=== PATIENT | female | born 1995 | race African-American/Black ===

== ENCOUNTER → 2017-04-19 | Outpatient (CLI) | payer OTHER ==
[~2017-04-19] MED LIST: METR-1 PO; PRENTAB PO
== END ==
LOC: HPND 11:53
PROVIDERS: ATTEND Obstetrics & Gynecology
DX: Z36 Encounter for antenatal screening of mother (principal)
CPT/HCPCS: 76801

== ENCOUNTER → 2017-06-18 | Outpatient (CLI) | payer OTHER | LOC: HPND 10:31 | PROVIDERS: ATTEND Obstetrics & Gynecology | DX: O35.8XX0 Maternal care for other (suspected) fetal abnormality and damage, not applicable or unspecified (principal); Z3A.18 18 weeks gestation of pregnancy | CPT/HCPCS: 76805 ==

== ENCOUNTER → 2017-09-12 | Outpatient (CLI) | payer OTHER ==
[~2017-09-12] MED LIST changes: -METR-1 PO
== END ==
LOC: HPND 09:49
PROVIDERS: ATTEND Obstetrics & Gynecology
DX: O35.1XX0 Maternal care for (suspected) chromosomal abnormality in fetus, not applicable or unspecified (principal)
CPT/HCPCS: 76811

== ENCOUNTER 2017-11-02 15:31 | Emergency (ER) | payer OTHER ==
--- NOTE | 2017-11-02 16:05 | PD ---
HPI Chief Complaint abdominal pain Date Seen: Nov 02, 2017 Time Seen: 16:02 (Earlene Claros MD R2) Travel History International Travel<30 Days: No Contact w/Intl Traveler<30Days: No (Earlene Claros MD R2) History of Present Illness HPI Patient is a 22 year old at 38 and 3/7 weeks gestation by first trimester US, DEISI 11/13/2017, who presents to the OB ED with abdominal pain and contractions. She denies leakage of fluid, vaginal bleeding. She feels baby moving regularly. Abdominal pain reportedly contact. She denies TO/N/V/D/fever/ sick contacts/SOB/calf pain/dizziness/seeing spots. [facility] care is with [facility] but patient has has limited exams this and no labs ( Pap performed and negative). MFM following patient for echogenic bowel which has resolved. Patient states she was 4.5cm in [facility] ED one week ago but she was not admitted. GBS unknown. (Earlene Claros MD R2) History Past Medical History Medical History: Denies Significant Hx (Earlene Claros MD R2) Obstetric History Obstetric History : 37 weeks, [id number] 2012 G2: current, limited PNC (Earlene Claros MD R2) Past Surgical History Surgical History: No Previous Surgery (Earlene Claros MD R2) Family History Family History: Negative (Earlene Claros MD R2) Social History Alcohol Use: No Tobacco Use: No Substance Abuse: No (Earlene Claros MD R2) Allergies-Medications (Allergen,Severity, Reaction): Coded Allergies: No Known Allergies (Unverified Allergy, Unknown, 11/02/17) Home Meds Active Scripts Vit W/ Ferrous Fumara (Prenate Elite 26-0.6-0.4 mg) 1 Tab Tab, 1 TAB PO DAILY, #30 BOTTLE 11 Refills Prov:Charissa Kinsey 09/10/17 Review of Systems Except as stated in HPI: all other systems reviewed are Neg (Earlene Claros MD R2) Physical Exam Narrative GENERAL: Well-nourished, well-developed female in no apparent distress. SKIN: Warm and dry. No rashes or ecchymoses. HEAD: Normocephalic and atraumatic. EYES: No scleral icterus. No injection or drainage. ENT: No nasal drainage noted. Mucous membranes pink. Airway patent. NECK: Supple, trachea midline. No JVD. CARDIOVASCULAR: Regular rate and rhythm without murmurs, gallops, or rubs. RESPIRATORY: Breath sounds equal bilaterally. No accessory muscle use. ABDOMEN/GI: Abdomen soft, non-tender, bowel sounds present, no rebound, no guarding. Gravid. GENITOURINARY: External Genitalia: intact and normal in appearance Cervix: 3/80/+1/posterior Presentation: vertex Membranes: intact Uterine Contractions: intermittent FHT's: Category: 1 Baseline:140s Reactive: no Variability: mod Decels: present on initial monitoring EXTREMITIES: No cyanosis or edema. BACK: Nontender without obvious deformity. No CVA tenderness. NEUROLOGICAL: Awake and alert. Motor and sensory grossly within normal limits. Five out of 5 muscle strength in all muscle groups. Normal speech. (Earlene Claros MD R2) Data Data Vital Signs Reviewed: Yes (VS wnl) Orders Orders Vital Signs (Adult) .ON ADMISSION (11/02/17 15:58) ^ Labor Status (11/02/17 15:58) ^ Non Stress Test (11/02/17 15:58) (Earlene Claros MD R2) MDM Medical Record Reviewed: Yes Narrative Course / MDM 22 year old at 38 and 3/7 weeks gestation by first trimester US, DEISI 11/13, who presents to the OB ED with abdominal pain and contractions. OB care with [facility] but limited. Labor Check: Cervical exam shows 3/80+1/posterior, intact membranes Category 2 tracing due to variable decels on monitoring and mild CTX --> BPP ordered Will discharge home with labor precautions counseling if not in labor Intrauterine : Category 1 tracing No CTX Routine care GBS unknown: will obtain today Limited PNC - will obtain CBC, BMP, UA, GC/Chlamydia, T&S, labs MFM following patient for echogenic bowel which has resolved. US with resolved echogenic bladder as of 09/18/[address] Nava (Earlene Claros MD R2) Plan BPP performed and read as 8/8 with KAITLYN >18cm. Cvx rechecked and 3.5/90/-1. Pt likely in latent labor. She was offered the option to ambulate and additional hour, be admitted but not augmented, or d/c home and return PRN. She opted to ambulate at home. Precautions reviewed. (Snow Naav MD) Diagnosis Diagnosis: Primary Impression: Abdominal pain affecting Disposition: 01 DISCHARGE HOME Condition: Stable Patient Instructions: Abdominal Pain in (ED), Having Your Baby: The Labor Process (GEN) Earlene Claros MD R2 Nov 02, 2017 16:05 Snow Nava MD Nov 02, 2017 19:30
[2017-11-02] MEDS ORDERED: LACTATED RINGER'S 1000 ML INJ 1,000 ML IV SCH (16:40)
[2017-11-02 16:52] VITALS: TEMP 98.2
[2017-11-02 17:16] LABS: AUTOMATED NEUTROPHIL # 7.3 TH/MM3 (1.8-7.7); BASOPHIL % 0.2 % (0.0-2.0); EOSINOPHIL % 0.2 % (0.0-4.0); HEMATOCRIT 31.3 % (35.0-46.0); HEMOGLOBIN 10.6 GM/DL (11.6-15.3); LYMPH % 15.1 % (9.0-44.0); LYMPHOCYTE # 1.4 TH/MM3 (1.0-4.8); MEAN CELL VOLUME 85.4 FL (80.0-100.0); MEAN CORPUSCULAR HGB CONC 33.9 % (32.0-36.0); MEAN PLATELET VOLUME 8.9 FL (7.0-11.0); MONO % 4.8 % (0.0-8.0); MONOCYTE # 0.4 TH/MM3 (0-0.9); NEUT % 79.7 % (16.0-70.0); PLATELET COUNT 243 TH/MM3 (150-450); RED BLOOD COUNT 3.66 MIL/MM3 (4.00-5.30); RED CELL DISTRIBUTION WIDTH 13.2 % (11.6-17.2); WHITE BLOOD COUNT 9.1 TH/MM3 (4.0-11.0)
[2017-11-02 17:36] LABS: BILIRUBIN, URINE NEG (NEG); BLOOD, URINE NEG (NEG); GLUCOSE,URINE NEG (NEG); KETONE, URINE 40 mg/dL (NEG); MUCUS URINE MANY /lpf (OCC); NITRITE,URINE NEG (NEG); SQUAMOUS EPITHELIAL CELL URINE 13 /hpf (0-5); URINE COLOR YELLOW (YELLW/STRAW); URINE LEUKOCYTE ESTERASE LARGE (NEG)
[2017-11-02 19:09] VITALS: RESP 18
== END 2017-11-02 19:25 | disposition home or self-care (01) ==
LOC: HOBED 15:31
DX: O26.893 Other specified pregnancy related conditions, third trimester (principal); R10.9 Unspecified abdominal pain; Z3A.38 38 weeks gestation of pregnancy
CPT/HCPCS: 59025; 76819; 80074; 81001; 85025; 86592; 86703; 86762; 86850; 86900; 86901; 87081; 87491; 87591; 96360

== ENCOUNTER 2017-11-04 02:16 | Inpatient (IN) | payer OTHER ==
[~2017-11-04] VITALS: Ht 154.9 cm; Wt 61.2 kg
[2017-11-04] VITALS (11 sets, daily range): BP systolic 107–157; BP diastolic 55–106; PULSE 76–101; RESP 16–20; TEMP 97.9–98.4
[2017-11-04] MEDS ORDERED: LACTATED RINGER'S 1000 ML INJ 1,000 ML IV SCH (02:32)
[2017-11-04] MEDS ORDERED: SODIUM CHLORIDE 0.9% FLUSH 10 ML FLUSH IV FLUSH PRN ×2 (02:45→04:00)
[2017-11-04] MEDS ORDERED: ZOLPIDEM TARTRATE 5 MG TAB PO PRN ×2 (02:45→04:00)
[2017-11-04] MEDS ORDERED: CALCIUM GLUCONATE 10% 1 GM/10 ML VIAL IV PUSH PRN (02:45)
[2017-11-04] MEDS ORDERED: ACETAMINOPHEN 325 MG TAB PO PRN (02:45)
[2017-11-04] MEDS ORDERED: DOCUSATE SODIUM 100 MG CAP PO PRN (02:45)
[2017-11-04] MEDS ORDERED: ONDANSETRON ODT 4 MG TAB PO PRN ×2 (02:45→04:00)
[2017-11-04] MEDS ORDERED: BETAMETHASONE SOD PHOS/ACETATE SUSP 30 MG/5 ML VIAL IM SCH (03:00)
[2017-11-04] MEDS ORDERED: ENOXAPARIN SODIUM 40 MG/0.4 ML SYRINGE SQ SCH (03:00)
[2017-11-04] MEDS ORDERED: OXYTOCIN 30 UNITS-500ML PREMIX 500 ML ONE (03:05)
[2017-11-04 03:14] LABS: AUTOMATED NEUTROPHIL # 4.7 TH/MM3 (1.8-7.7); BASOPHIL % 0.3 % (0.0-2.0); EOSINOPHIL # 0.1 TH/MM3 (0-0.4); EOSINOPHIL % 0.7 % (0.0-4.0); HEMOGLOBIN 10.3 GM/DL (11.6-15.3); LYMPH % 25.6 % (9.0-44.0); LYMPHOCYTE # 1.8 TH/MM3 (1.0-4.8); MEAN CELL VOLUME 85.2 FL (80.0-100.0); MEAN CORPUSCULAR HEMOGLOBIN 28.3 PG (27.0-34.0); MEAN CORPUSCULAR HGB CONC 33.3 % (32.0-36.0); MEAN PLATELET VOLUME 8.8 FL (7.0-11.0); MONO % 7.9 % (0.0-8.0); MONOCYTE # 0.6 TH/MM3 (0-0.9); NEUT % 65.5 % (16.0-70.0); PLATELET COUNT 235 TH/MM3 (150-450); RED BLOOD COUNT 3.63 MIL/MM3 (4.00-5.30); RED CELL DISTRIBUTION WIDTH 13.3 % (11.6-17.2); WHITE BLOOD COUNT 7.2 TH/MM3 (4.0-11.0)
--- NOTE | 2017-11-04 03:24 | PD ---
HPI Chief Complaint Water broke Date Seen: Nov 04, 2017 Travel History International Travel<30 Days: No Contact w/Intl Traveler<30Days: No Known Affected Area: No History of Present Illness HPI Patient is a 22 y/o at 38/2 weeks gestation that presents to the [place] OB ED after her water broke at 1:45am this morning. She started having contractions in the ED that are strong and 2-3 apart. She denies vaginal bleeding, abnormal vaginal discharge, and endorses positive movements. She gets care at [facility] but has been non-compliant with most visits. GBS is unknown at this time. She was last seen in the OB ED yesterday Weeks Gestation: 38 Para: 1 : 2 History Past Medical History Medical History: Denies Significant Hx Past Surgical History Surgical History: No Previous Surgery Family History Family History: Negative Social History Alcohol Use: No Tobacco Use: No Substance Abuse: No Allergies-Medications (Allergen,Severity, Reaction): Coded Allergies: No Known Allergies (Unverified Allergy, Unknown, 11/02/17) Home Meds Discontinued Scripts Vit W/ Ferrous Fumara (Prenate Elite 26-0.6-0.4 mg) 1 Tab Tab, 1 TAB PO DAILY, #30 BOTTLE 11 Refills Prov:Charissa Kinsey 09/10/17 Review of Systems General / Constitutional: No: Fever, Chills Eyes: No: Blurred Vision HENT: No: Headaches Cardiovascular: No: Chest Pain or Discomfort Respiratory: No: Cough, Short of Breath Gastrointestinal: Abdominal Pain, No: Nausea, Vomiting Genitourinary: No: Dysuria, Discharge Musculoskeletal: Cramping Skin: No Rash, No Itching Neurologic: No: Weakness Physical Exam Narrative GENERAL: Well-nourished, well-developed patient. SKIN: Warm and dry. HEAD: Normocephalic and atraumatic. EYES: No scleral icterus. No injection or drainage. ENT: No nasal drainage noted. Mucous membranes pink. Airway patent. NECK: Supple, trachea midline. No JVD. CARDIOVASCULAR: Regular rate and rhythm without murmurs, gallops, or rubs. RESPIRATORY: Breath sounds equal bilaterally. No accessory muscle use. ABDOMEN/GI: Abdomen soft, non-tender, bowel sounds present, no rebound, no guarding Gravid to 38 weeks size GENITOURINARY: External Genitalia: intact and normal in appearance Cervix: Anterior Dilatation: 8cm Effacement: 100% Station: 0 Presentation: cephalic Membranes: ruptured Uterine Contractions: Present every 1-2 mins FHT's: Category: I Baseline: 140 Reactive: few accels present Variability: initially minimal, then moderate Decels: None EXTREMITIES: No cyanosis or edema. NEUROLOGICAL: Awake and alert. Motor and sensory grossly within normal limits. Five out of 5 muscle strength in all muscle groups. Normal speech. Data Data Vital Signs Reviewed: Yes Orders Orders Ob (2e) Additional Admit Info (11/04/17 02:36) Admit To Inpatient (11/04/17 ) Vital Signs (Adult) Q4H (11/04/17 02:32) Activity Bed Rest (11/04/17 02:32) Heart (11/04/17 02:32) Diet Regular Basic (11/04/17 Breakfast) Lactated Ringer's 1000 Ml Inj (Lr 1000 M (11/04/17 02:32) Sodium Chloride 0.9% Flush (Ns Flush) (11/04/17 02:45) Sodium Chloride 0.9% Flush (Ns Flush) (11/04/17 09:00) Betamethasone Inj (Celestone Soluspan In (11/04/17 03:00) Calcium Gluconate Inj (Calcium Gluconate (11/04/17 02:45) Acetaminophen (Tylenol) (11/04/17 02:45) Ondansetron Odt (Zofran Odt) (11/04/17 02:45) Docusate Sodium (Colace) (11/04/17 02:45) Owysnbso-Pls-Yfmef-Iron Prenat (Stuartna (11/04/17 09:00) Zolpidem (Ambien) (11/04/17 02:45) Complete Blood Count With Diff (11/04/17 02:32) Hold Clot (11/04/17 02:32) Group B Beta Strep Scrn (Gbs) (11/04/17 02:32) Gc And Chlamydia Pcr (11/04/17 02:32) Drug Screen, Random Urine (11/04/17 02:32) Urinalysis - C+S If Indicated (11/04/17 02:32) Ampicillin Inj (Ampicillin Inj) (11/04/17 06:00) Erythromycin Ees (Ees) (11/04/17 06:00) Comprehensive Metabolic Panel (11/04/17 02:39) Rubella Immune Status (11/04/17 02:39) Hepatitis Profile (11/04/17 02:39) Rapid Plasma Regin (Rpr) W Ttr (11/04/17 02:39) Ob Poc Ultrasound (11/04/17 ) Prothrombin Time / Inr (Pt) (11/04/17 02:41) Act Partial Throm Time (Ptt) (11/04/17 02:41) Enoxaparin Inj (Lovenox Inj) (11/04/17 03:00) Fentanyl Inj (Fentanyl Inj) (11/04/17 03:05) Oxytocin 30 Units-500ml Premix (Pitocin (11/04/17 03:05) Labs Laboratory Tests Test 11/04/17 02:38 White Blood Count 7.2 Red Blood Count 3.63 Hemoglobin 10.3 Hematocrit 31.0 Mean Corpuscular Volume 85.2 Mean Corpuscular Hemoglobin 28.3 Mean Corpuscular Hemoglobin Concent 33.3 Red Cell Distribution Width 13.3 Platelet Count 235 Mean Platelet Volume 8.8 Neutrophils (%) (Auto) 65.5 Lymphocytes (%) (Auto) 25.6 Monocytes (%) (Auto) 7.9 Eosinophils (%) (Auto) 0.7 Basophils (%) (Auto) 0.3 Neutrophils # (Auto) 4.7 Lymphocytes # (Auto) 1.8 Monocytes # (Auto) 0.6 Eosinophils # (Auto) 0.1 Basophils # (Auto) 0.0 CBC Comment DIFF FINAL Differential Comment [facility] Medical Record Reviewed: Yes Interpretation(s) 22 y/o in active labor, SROM, GBS unknown Plan Intrauterine , GBS unknown -SROM, clear fluid - heart tones reactive, reassuring -In active labor per vaginal exam -Admit to L&D -Patient would like an epidural but may not be possible due to advancement of labor -Expect a precipitous delivery Diagnosis Diagnosis: Primary Impression: Uterine contractions during Eko,Elisa Blancas MD R2 Nov 04, 2017 03:24
[2017-11-04 03:35] LABS: AMORPHOUS SEDIMENT, URINE MOD; BACTERIA, URINE MOD /hpf; BILIRUBIN, URINE NEG (NEG); BLOOD, URINE MOD (NEG); GLUCOSE,URINE NEG (NEG); KETONE, URINE NEG (NEG); MUCUS URINE FEW /lpf (OCC); NITRITE,URINE NEG (NEG); PH, URINE 7.5 (5.0-8.5); SQUAMOUS EPITHELIAL CELL URINE 94 /hpf (0-5); URINE COLOR YELLOW (YELLW/STRAW); URINE LEUKOCYTE ESTERASE LARGE (NEG)
--- NOTE | 2017-11-04 03:48 | PD.OB.DELI ---
Weeks gestation: 38 Gest age assessed date: Nov 04, 2017 Gest age assessed time: 03:00 Pt started active labor?: Yes Active labor start date: Nov 04, 2017 Active labor start time: 03:00 Medical induction of labor?: No Artificial rupture of membrane: No Anesthesia: None Episiotomy: None Vaginal Delivery: Normal Presentation: Occiput anterior Nuchal Cord: None Delayed cord clamping (45 sec): Yes : Male Delivery date: Nov 04, 2017 Delivery time: 03:31 One Minute : 8 Weight: 2985 gram Placenta: Spontaneous delivery, Intact, 3 vessel cord Laceration: No lacerations Estimated blood loss: 100 cc Additional Information head delivered by maternal force. Anterior shoulder delivered without complications. 45 second delayed cord clamping. No lacerations appreciated. Ap Zelaya MD R1 Nov 04, 2017 03:48
[2017-11-04] MEDS ORDERED: WITCH HAZEL 50%/GLYCERIN 12.5% 40 PAD JAR TOPICAL PRN (04:00)
[2017-11-04] MEDS ORDERED: ALUMINUM/MAGNESIUM/SIMETH 30 ML CUP PO PRN (04:00)
[2017-11-04] MEDS ORDERED: BENZOCAINE 20% TOPICAL SPRAY 60 ML CAN TOPICAL PRN (04:00)
[2017-11-04] MEDS ORDERED: OXYTOCIN 30 UNITS-500ML PREMIX 500 ML IV SCH (04:00)
[2017-11-04] MEDS ORDERED: DOCUSATE SODIUM 50 MG/SENNA 8.6 MG TAB PO PRN (04:00)
[2017-11-04] MEDS: ACETAMINOPHEN 325 MG TAB PO PRN ×3 (05:37→14:11)
[2017-11-04] MEDS: IBUPROFEN 800 MG TAB PO PRN ×2 (05:37→14:11)
[2017-11-04] MEDS ORDERED: ERYTHROMYCIN ETHYLSUCCINATE 400 MG TAB PO SCH (06:00)
[2017-11-04] MEDS ORDERED: AMPICILLIN INJ 2,000 MG in SODIUM CHLORIDE 0.9% INJ 100 ML IV SCH (06:00)
--- NOTE | 2017-11-04 08:32 | HHI.HP ---
History & Physical H&P HPI Chief Complaint Water broke Date Seen: Nov 04, 2017 Travel History International Travel<30 Days: No Contact w/Intl Traveler<30Days: No Known Affected Area: No History of Present Illness HPI Patient is a 22 y/o at 38/2 weeks gestation that presents to the [place] [facility] ED after her water broke at 1:45am this morning. She started having contractions in the ED that are strong and 2-3 apart. She denies vaginal bleeding, abnormal vaginal discharge, and endorses positive movements. She gets care at [facility] but has been non-compliant with most visits. GBS is unknown at this time. She was last seen in the OB ED yesterday Weeks Gestation: 38 Para: 1 : 2 History (Limited) History Past Medical History Medical History: Denies Significant Hx Past Surgical History Surgical History: No Previous Surgery Family History Family History: Negative Social History Alcohol Use: No Tobacco Use: No Substance Abuse: No Allergies-Medications Allergies-Medications (Allergen,Severity, Reaction): Coded Allergies: No Known Allergies (Unverified Allergy, Unknown, 11/02/17) Home Meds Discontinued Scripts Vit W/ Ferrous Fumara (Prenate Elite 26-0.6-0.4 mg) 1 Tab Tab, 1 TAB PO DAILY, #30 BOTTLE 11 Refills Prov:Charissa Kinsey 09/10/17 ROS Review of Systems General / Constitutional: No: Fever, Chills Eyes: No: Blurred Vision HENT: No: Headaches Cardiovascular: No: Chest Pain or Discomfort Respiratory: No: Cough, Short of Breath Gastrointestinal: Abdominal Pain, No: Nausea, Vomiting Genitourinary: No: Dysuria, Discharge Musculoskeletal: Cramping Skin: No Rash, No Itching Neurologic: No: Weakness Physical Exam Physical Exam Narrative GENERAL: Well-nourished, well-developed patient. SKIN: Warm and dry. HEAD: Normocephalic and atraumatic. EYES: No scleral icterus. No injection or drainage. ENT: No nasal drainage noted. Mucous membranes pink. Airway patent. NECK: Supple, trachea midline. No JVD. CARDIOVASCULAR: Regular rate and rhythm without murmurs, gallops, or rubs. RESPIRATORY: Breath sounds equal bilaterally. No accessory muscle use. ABDOMEN/GI: Abdomen soft, non-tender, bowel sounds present, no rebound, no guarding Gravid to 38 weeks size GENITOURINARY: External Genitalia: intact and normal in appearance Cervix: Anterior Dilatation: 8cm Effacement: 100% Station: 0 Presentation: cephalic Membranes: ruptured Uterine Contractions: Present every 1-2 mins FHT's: Category: I Baseline: 140 Reactive: few accels present Variability: initially minimal, then moderate Decels: None EXTREMITIES: No cyanosis or edema. NEUROLOGICAL: Awake and alert. Motor and sensory grossly within normal limits. Five out of 5 muscle strength in all muscle groups. Normal speech. Data Data Data Vital Signs Reviewed: Yes Orders Orders Ob (2e) Additional Admit Info (11/04/17 02:36) Admit To Inpatient (11/04/17 ) Vital Signs (Adult) Q4H (11/04/17 02:32) Activity Bed Rest (11/04/17 02:32) Heart (11/04/17 02:32) Diet Regular Basic (11/04/17 Breakfast) Lactated Ringer's 1000 Ml Inj (Lr 1000 M (11/04/17 02:32) Sodium Chloride 0.9% Flush (Ns Flush) (11/04/17 02:45) Sodium Chloride 0.9% Flush (Ns Flush) (11/04/17 09:00) Betamethasone Inj (Celestone Soluspan In (11/04/17 03:00) Calcium Gluconate Inj (Calcium Gluconate (11/04/17 02:45) Acetaminophen (Tylenol) (11/04/17 02:45) Ondansetron Odt (Zofran Odt) (11/04/17 02:45) Docusate Sodium (Colace) (11/04/17 02:45) Kfpiuncm-Ncc-Vcwax-Iron Prenat (Stuartna (11/04/17 09:00) Zolpidem (Ambien) (11/04/17 02:45) Complete Blood Count With Diff (11/04/17 02:32) Hold Clot (11/04/17 02:32) Group B Beta Strep Scrn (Gbs) (11/04/17 02:32) Gc And Chlamydia Pcr (11/04/17 02:32) Drug Screen, Random Urine (11/04/17 02:32) Urinalysis - C+S If Indicated (11/04/17 02:32) Ampicillin Inj (Ampicillin Inj) (11/04/17 06:00) Erythromycin Ees (Ees) (11/04/17 06:00) Comprehensive Metabolic Panel (11/04/17 02:39) Rubella Immune Status (11/04/17 02:39) Hepatitis Profile (11/04/17 02:39) Rapid Plasma Regin (Rpr) W Ttr (11/04/17 02:39) Ob Poc Ultrasound (11/04/17 ) Prothrombin Time / Inr (Pt) (11/04/17 02:41) Act Partial Throm Time (Ptt) (11/04/17 02:41) Enoxaparin Inj (Lovenox Inj) (11/04/17 03:00) Fentanyl Inj (Fentanyl Inj) (11/04/17 03:05) Oxytocin 30 Units-500ml Premix (Pitocin (11/04/17 03:05) Labs Laboratory Tests Test 11/04/17 02:38 White Blood Count 7.2 Red Blood Count 3.63 Hemoglobin 10.3 Hematocrit 31.0 Mean Corpuscular Volume 85.2 Mean Corpuscular Hemoglobin 28.3 Mean Corpuscular Hemoglobin Concent 33.3 Red Cell Distribution Width 13.3 Platelet Count 235 Mean Platelet Volume 8.8 Neutrophils (%) (Auto) 65.5 Lymphocytes (%) (Auto) 25.6 Monocytes (%) (Auto) 7.9 Eosinophils (%) (Auto) 0.7 Basophils (%) (Auto) 0.3 Neutrophils # (Auto) 4.7 Lymphocytes # (Auto) 1.8 Monocytes # (Auto) 0.6 Eosinophils # (Auto) 0.1 Basophils # (Auto) 0.0 CBC Comment DIFF FINAL Differential Comment MDM MDM Medical Record Reviewed: Yes Interpretation(s) 22 y/o in active labor, SROM, GBS unknown Plan Intrauterine , GBS unknown -SROM, clear fluid - heart tones reactive, reassuring -In active labor per vaginal exam -Admit to L&D -Patient would like an epidural but may not be possible due to advancement of labor -Expect a precipitous delivery Diagnosis Diagnosis: Primary Impression: Uterine contractions during Eko,Elisa Blancas MD R2 Nov 04, 2017 08:32
[2017-11-04] MEDS ORDERED: MULTIVIT/MIN/PREN/FOL AC/IRON PRENATAL TAB PO SCH (09:00)
[2017-11-04] MEDS ORDERED: SODIUM CHLORIDE 0.9% FLUSH 10 ML FLUSH IV FLUSH SCH ×2 (09:00)
[2017-11-04] MEDS ORDERED: MEASLES, MUMPS, RUBELLA VACCINE 0.5 ML VIAL SQ ONE (16:00)
[2017-11-04] MEDS ORDERED: DIPHTH/TETANUS/ACEL PERTUSSIS (BOOSTER) 0.5 ML VIAL/PFS IM ONE (16:00)
[2017-11-04] MEDS: oxyCODONE/ACETAMINOPHEN 5 MG/325 MG TAB PO PRN (20:23)
[2017-11-05] MEDS: IBUPROFEN 800 MG TAB PO PRN ×2 (01:33→14:26)
[2017-11-05 08:00] VITALS: BP 103/72; PULSE 80; RESP 18; TEMP 97.9; O2SAT 98
--- NOTE | 2017-11-05 09:42 | HHI.OB ---
Subjective Post Day: 1 Remarks Patient reports pain is controlled, minimal bleeding, no dysuria, passing gas, + BM, ambulating appropriately, adequate oral intake. Feeding baby via breast/ bottle. Denies fever, chest pain, shortness of breath, or calf tenderness. Objective Vitals/I&O Vital Signs Date Time Temp Pulse Resp B/P (MAP) Pulse Ox O2 Delivery O2 Flow Rate FiO2 11/05/17 08:00 97.9 80 18 103/72 (82) 98 11/04/17 20:00 98.4 77 20 107/55 (72) Objective Remarks GENERAL: Well-nourished, well-developed patient. CARDIOVASCULAR: Regular rate and rhythm without murmurs, gallops, or rubs. RESPIRATORY: Breath sounds equal bilaterally. No accessory muscle use. ABDOMEN/GI: Abdomen soft, non-tender. Fundus: Firm, non-tender at umbilicus. GENITOURINARY: Light to moderate bleeding. EXTREMITIES: No cyanosis or edema, non-tender, without signs of DVT. Medications and IVs Current Medications Medications (Trade) Dose Ordered Sig/Domenic Route Start Time Stop Time Status Last Admin (NS Flush) 2 ml BID IV FLUSH 11/04/17 09:00 (NS Flush) 2 ml UNSCH PRN IV FLUSH 11/04/17 04:00 (Tylenol) 650 mg Q4H PRN PO 11/04/17 04:00 11/04/17 14:11 (Motrin) 800 mg Q8H PRN PO 11/04/17 04:00 11/05/17 01:33 (Percocet 5-325 Mg) 1 tab Q4H PRN PO 11/04/17 04:00 11/04/17 20:23 (Americaine 20% Top Spr) 1 spray Q4H PRN TOPICAL 11/04/17 04:00 (Tucks Pads) 1 applic QID PRN TOPICAL 11/04/17 04:00 (Aisha-Colace) 2 tab Q12H PRN PO 11/04/17 04:00 11/04/17 14:10 (Ambien) 5 mg HS PRN PO 11/04/17 04:00 (Mag-Al Plus Susp Liq) 15 ml Q8H PRN PO 11/04/17 04:00 (Zofran Odt) 4 mg Q6H PRN PO 11/04/17 04:00 Assessment/Plan Problem List: (1) Vaginal delivery ICD Codes: O80 - Encounter for full-term uncomplicated delivery Assessment and Plan Patient is a 22 y/o PPD #1 for vaginal delivery. -Continue routine care. -Percocet and Motrin PRN pain. -Encouraged OOB. Advised pelvic rest for 6 wks. -Will need a f/u appt. within 6 wks. -Re: ctrl: unknown -D/c tomorrow Maggie Santos MD R1 Nov 05, 2017 09:42
[2017-11-05] MEDS: oxyCODONE/ACETAMINOPHEN 5 MG/325 MG TAB PO PRN (14:26)
[2017-11-05 20:00] VITALS: BP 126/80; PULSE 97; RESP 20; TEMP 98.5
[2017-11-06] MEDS: IBUPROFEN 800 MG TAB PO PRN ×2 (00:36→08:18)
[2017-11-06] MEDS ORDERED: IBUP1TAB7 PO (07:49)
--- NOTE | 2017-11-06 07:49 | HHI.DCPOC ---
Discharge Care Plan Diagnosis: (1) Vaginal delivery Report Symptoms to Your Doctor -Temperature above 100.5 degrees -Redness, of incision or excessive or foul smelling drainage -Unusual pain or calf pain -Increased vaginal bleeding -Painful or difficulty urinating -Feelings of extreme sadness or anxiety after 2 weeks Goals to Promote Your Health * To prevent worsening of your condition and complications * To maintain your health at the optimal level Directions to Meet Your Goals Take your medications as prescribed Follow your dietary instruction Follow activity as directed Ensure plenty of rest for recovery Drink fluids for hydration Keep your appointments as scheduled Take your immunizations and boosters as scheduled If your symptoms worsen call your PCP, if no PCP go to Urgent Care Center or Emergency Room Smoking is Dangerous to Your Health. Avoid second hand smoke Call the 24-hour crisis hotline for domestic abuse at Earlene Claros MD R2 Nov 06, 2017 07:49
--- NOTE | 2017-11-06 07:57 | HHI.OB ---
Subjective Post Day: 2 Remarks day # 2. AFVSS overnight. Decreased lochia. Denies dysuria. No breast tenderness. She is feeding the baby via formula. Appetite good. No nausea or vomiting. Ambulating well. Denies calf pain or shortness of breath. Otherwise, she is doing well this morning and has no other concerns. Objective Vitals/I&O Vital Signs Date Time Temp Pulse Resp B/P (MAP) Pulse Ox O2 Delivery O2 Flow Rate FiO2 11/05/17 20:00 98.5 97 20 126/80 (95) 11/05/17 08:00 97.9 80 18 103/72 (82) 98 Objective Remarks GENERAL: Well-nourished, well-developed female in no apparent distress. CARDIOVASCULAR: Regular rate and rhythm without murmurs, gallops, or rubs. RESPIRATORY: Breath sounds equal bilaterally. No accessory muscle use. ABDOMEN/GI: Abdomen soft, non-tender. Fundus: Firm, non-tender at umbilicus. GENITOURINARY: Light to moderate bleeding. EXTREMITIES: No cyanosis or edema, non-tender, without signs of DVT. Medications and IVs Current Medications Medications (Trade) Dose Ordered Sig/Domenic Route Start Time Stop Time Status Last Admin (NS Flush) 2 ml BID IV FLUSH 11/04/17 09:00 (NS Flush) 2 ml UNSCH PRN IV FLUSH 11/04/17 04:00 (Tylenol) 650 mg Q4H PRN PO 11/04/17 04:00 11/04/17 14:11 (Motrin) 800 mg Q8H PRN PO 11/04/17 04:00 11/06/17 00:36 (Percocet 5-325 Mg) 1 tab Q4H PRN PO 11/04/17 04:00 11/05/17 14:26 (Americaine 20% Top Spr) 1 spray Q4H PRN TOPICAL 11/04/17 04:00 (Tucks Pads) 1 applic QID PRN TOPICAL 11/04/17 04:00 (Aisha-Colace) 2 tab Q12H PRN PO 11/04/17 04:00 11/04/17 14:10 (Ambien) 5 mg HS PRN PO 11/04/17 04:00 (Mag-Al Plus Susp Liq) 15 ml Q8H PRN PO 11/04/17 04:00 (Zofran Odt) 4 mg Q6H PRN PO 11/04/17 04:00 Assessment/Plan Problem List: (1) Vaginal delivery ICD Codes: O80 - Encounter for full-term uncomplicated delivery Assessment and Plan 22 y/o female who is PPD# 2 s/p . -Continue routine care. -Tylenol and Motrin PRN pain. -Encouraged OOB. Advised pelvic rest for 6 wks. -Re: ctrl, she would like to wait until check -Anticipate discharge today DW Earlene Correia MD R2 Nov 06, 2017 07:57
[2017-11-06 08:05] VITALS: BP 111/55; PULSE 83; RESP 16; TEMP 98.2
[2017-11-06 09:44] LABS: HEPATITIS A AB IGM NEGATIVE (NEGATIVE); HEPATITIS B CORE AB IGM NEGATIVE (NEGATIVE); HEPATITIS B SURFACE ANTIGEN NEGATIVE (NEGATIVE); HEPATITIS C AB IgG NEGATIVE (NEGATIVE)
== END 2017-11-06 12:29 | disposition home or self-care (01) | DRG 775 ==
LOC: HOBED 02:16 → H2EB 02:36 → H1EA 05:22
PROVIDERS: ADMIT Obstetrics & Gynecology Maternal & Fetal Medicine; ATTEND Obstetrics & Gynecology Maternal & Fetal Medicine
PROC: 10E0XZZ Delivery of Products of Conception, External Approach (ICD-10-PCS; principal; 2017-11-04)
DX: O62.3 Precipitate labor (principal); Z3A.38 38 weeks gestation of pregnancy; Z37.0 Single live birth; Z91.19 Patient's noncompliance with other medical treatment and regimen
CPT/HCPCS: 59025; 76819; 80074; 80307; 81001; 85025; 86592; 86703; 86762; 86850; 86900; 86901; 87081; 87086; 87491; 87591; 96360; J2590; J3010

== ENCOUNTER 2018-03-09 14:56 | Emergency (ER) | payer OTHER ==
[~2018-03-09 14:56] MED LIST changes: +IBUP1TAB7 PO; -PRENTAB PO
[2018-03-09 15:04] VITALS: BP 126/75; PULSE 104; RESP 18; TEMP 98; O2SAT 95
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
[2018-03-09] MEDS ORDERED: ACETAMINOPHEN/HYDROcodone 325 MG/5 MG TAB PO ONE (16:15)
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
[2018-03-09] MEDS ORDERED: IBUP-232 PO (17:06)
[2018-03-09] MEDS ORDERED: CYCL5TAB PO (17:06)
== END 2018-03-09 17:41 | disposition home or self-care (01) ==
LOC: NEPD 14:56
DX: S16.1XXA Strain of muscle, fascia and tendon at neck level, initial encounter (principal); V43.52XA Car driver injured in collision with other type car in traffic accident, initial encounter
CPT/HCPCS: 70450; 72125; 99283; L0150